=== PATIENT | male | born 1950 | race Two or more races ===

== ENCOUNTER 2023-09-07 11:12 | Outpatient (CLI) | payer MEDICARE ==
[2023-09-07 13:28] LABS: #Basophils 0.1 10x3/uL (0.0-0.2); #Eosinphils 0.2 10x3/uL (0.0-0.5); #Monocytes 0.9 10x3/uL (0.0-1.1); #Neutrophils 7.6 10x3/uL (1.5-8.4); %Basophils 0.5 % (0.0-2.0); %Eosinophils 1.8 % (0.0-6.0); %Lymphocytes 18.8 % (18.0-47.0); %Monocytes 8.5 % (0.0-10.0); %Neutrophils 69.9 % (40.0-75.0); Hematocrit 44.7 % (38.8-50.0); Hemoglobin 14.8 g/dL (13.5-17.5); Mean Corpuscular HGB CONC 33.1 g/dL (32.0-36.0); Mean Corpuscular Volume 93.5 fl (81.2-95.1); Mean Platelet Volume 10.2 fl (7.4-10.4); Platelet Count 247 10x3/uL (150-450); RBC Distribution Width 13.2 % (11.5-14.5); Red Blood Cell (RBC) Count 4.78 10x6/uL (4.32-5.72); White Blood Cell (WBC) Count 10.9 10x3/uL (3.5-10.5)
[2023-09-07 13:30] LABS: Anion Gap 18 mmol/L (10-20); BUN (Urea Nitrogen) 13 mg/dL (8.4-25.7); Calc. Creatinine Clearance 0 mL/min (70-130); Calcium 9.6 mg/dL (7.8-10.44); Carbon Dioxide 21 mmol/L (23-31); Chloride 105 mmol/L (98-107); Estimated GFR 79; Glucose 151 mg/dL (83-110); Potassium 4.3 mmol/L (3.5-5.1); Sodium 140 mmol/L (136-145)
== END 2023-09-07 11:13 | disposition home or self-care (01) ==
LOC: LABBT 11:12
PROVIDERS: ATTEND Surgery
DX: Z01.818 Encounter for other preprocedural examination (principal); K40.90 Unilateral inguinal hernia, without obstruction or gangrene, not specified as recurrent
CPT/HCPCS: 80048; 85025; 93005; 93010

== ENCOUNTER 2023-09-14 06:21 | Day surgery (SDC) | payer MEDICARE ==
[2023-09-07 11:57] VITALS: BMI 28.7
[2023-09-14] MEDS ORDERED: PROPOFOL 20 ML ONE (07:39)
[2023-09-14] MEDS ORDERED: Lidocaine 1% PF 5 ML VIAL ONE (07:39)
[2023-09-14] MEDS ORDERED: fentaNYL PF 100 MCG/2 ML SYRINGE ONE (07:39)
[2023-09-14] MEDS ORDERED: Rocuronium Bromide 10 MG/ML (10ML VIAL) ONE (07:39)
[2023-09-14] MEDS ORDERED: CEFAZOLIN 2 GM VIAL ONE (07:51)
[2023-09-14] MEDS ORDERED: Sodium Chloride 0.9% 100 ML ONE (07:52)
[2023-09-14] MEDS ORDERED: EPINEPHrine 1 MG/ML VIAL ONE (08:01)
[2023-09-14] MEDS ORDERED: Bupivacaine 0.25% HCL 30 ML VIAL ONE (08:01)
[2023-09-14] MEDS ORDERED: ePHEDrine Sulfate 50 MG/10 ML VIAL ONE (09:48)
[2023-09-14] MEDS ORDERED: SUGAMMADEX SODIUM 200 MG/2 ML VIAL ONE (10:16)
[2023-09-14] MEDS ORDERED: Ondansetron PF 4 MG/2 ML Vial ONE (10:19)
[2023-09-14] MEDS ORDERED: fentaNYL 50 mcg/mL 1 mL Vial ONE (10:44)
[2023-09-14] MEDS ORDERED: HYDROcodone/Acetaminophen 5/325 mg Tablet ONE (11:26)
== END 2023-09-14 12:10 | disposition home or self-care (01) ==
LOC: SDC 06:21
PROVIDERS: ATTEND Surgery
PROC: 0DQV4ZZ Repair Mesentery, Percutaneous Endoscopic Approach (ICD-10-PCS; principal; 2023-09-14)
DX: K40.20 Bilateral inguinal hernia, without obstruction or gangrene, not specified as recurrent (principal); Z88.8 Allergy status to other drugs, medicaments and biological substances
CPT/HCPCS: 49650; J0171; J3010; A4314; C1781; J2405; J2704; J3490; S0020

== ENCOUNTER 2024-01-25 14:04 | Outpatient (CLI) | payer MEDICARE | END 2024-01-25 14:05 | disposition home or self-care (01) | LOC: BICMAMMO 14:04 | PROVIDERS: ATTEND Internal Medicine | DX: Z13.820 Encounter for screening for osteoporosis (principal); M81.0 Age-related osteoporosis without current pathological fracture; M85.851 Other specified disorders of bone density and structure, right thigh | CPT/HCPCS: 77080 ==